=== PATIENT | male | born 1985 | race Caucasian/White ===

== ENCOUNTER 2024-10-07 12:37 | Outpatient (AMB) | payer MEDICAID, SELFPAY ==
--- NOTE | 2024-10-07 12:48 | MHC.OFFVIS ---
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 Patient says he has study atrium male from [facility] war [place] recently moved to [facility]. He has been having left-sided chest discomfort which she describes as burning chest discomfort. History was obtained with help of his friend who is present and helps with interpretation. Patient says this symptoms last for about 5-10 minutes and dissipate on its own. Mostly happen at rest. He is also noted to have slow heart rate he notices along with this symptoms and has to take a deep breath relieved with symptoms. Symptoms have now associated with being hungry or after a meal. Symptoms are not associated with exertion but can happen with exertion. He is worried about his heart issues due to his dad's history of stenting 5 years ago. He has no other risk factors. Denies smoking. Denies any significant alcohol use. No prolonged palpitation irregular heartbeat. No lightheadedness, syncope. No orthopnea, PND, leg edema. [facility] Family History Father CAD (coronary artery disease) Mother No problems noted. Social History Patient Tobacco Use Status: Never used Tobacco Review of Systems Const Denies chills, Denies daytime sleepiness, Denies fatigue, Denies fever(s), Denies frequent falls, Denies poor appetite, Denies snoring, Denies stops breathing during sleep, Denies weakness, Denies weight gain and Denies weight loss Eyes Denies loss of vision ENT Denies dizziness and Denies hearing loss Card Reports chest pain, Denies claudication, Denies leg edema, Denies lightheadedness, Denies palpitations, Denies dyspnea, Denies dyspnea on exertion and Denies orthopnea Resp Denies cough, Denies excessive phlegm production, Denies dyspnea, Denies dyspnea on exertion, Denies snoring and Denies wheezing GI Denies abdominal pain, Denies hematochezia, Denies change in bowel habits, Denies nausea and Denies vomiting Denies dysuria and Denies urinary frequency Musc Denies arthralgias, Denies muscle weakness, Denies numbness and Denies other (frequent falls) Skin/Breast Denies nail changes and Denies rash Neuro Denies Abnormal speech present, Denies dizziness, Denies frequent falls, Denies loss of vision, Denies memory loss, Denies numbness and Denies weakness Psych Denies depression and Denies memory loss Endo Denies fatigue and Denies palpitations Saul/Lymph Reports easy bruising and Reports other (anemia) Aller/Immun Denies wheezing Physical Exam Vital Signs: Last Vital Signs Pulse 71 10/07/24 12:49 BP 120/80 10/07/24 12:49 BMI result Body Mass Index 23.1 Const General: cooperative, comfortable, no acute distress, well developed, alert, awake and Physically active Nutritional Appearance: average body habitus and well nourished Orientation/consciousness: patient oriented x3 Limitations: no limitations HEENT Head: Yes normocephalic and Yes atraumatic Neck Neck: Yes trachea midline, Yes supple and Yes no JVD Resp Effort & Inspection: normal respiratory effort Auscultation: clear to auscultation bilaterally Cardio Jugular venous distension: no JVD Palpation: normal PMI Rate: regular rate Rhythm: regular rhythm Heart sounds: S1 normal heart sound present, S2 normal heart sound present, no click, no gallops and no murmurs GI Auscultation: normal bowel sounds Skin General skin exam: no rashes or lesions noted Neuro General: patient oriented x3 and no focal motor deficits Speech: No Abnormal speech present Extrem General: Yes no clubbing, cyanosis or edema Psych Appearance: grossly normal Assessment & Plan Assessment & Plan (1) Atypical chest pain: Code(s): R07.89 - Other chest pain Category: Medical Plan: Atypical chest pain this young man with family history of coronary artery disease without any clear exertional chest pain which is suggestive of high risk for coronary artery disease. However given his symptoms and risk factors suggest him to undergo a treadmill stress test given his baseline benign EKG. Also suggest echocardiogram to rule out any other structural heart issues including hypertrophic cardiomyopathy. Also just Holter monitor given that his symptoms of slow heart rate to rule out any significant Duran or tachyarrhythmias. This was discussed with him. He understands agrees. Advised to avoid sudden strenuous significant exertion. Follow up in the clinic after above-mentioned test. Thank you for allowing me to partake in his care Coding Level of Care Code New Pt Level 4 (34105) Complex EM visit Add On G2211 Diagnoses Atypical chest pain R07.89
[2024-10-07 12:49] VITALS: BP 120/80; PULSE 71; BMI 23.1
--- OUTSIDE RECORDS SUMMARY | 2024-10-07 14:54 | XMS_ITS | Clinical Summary ---
Author Organization [employer] [facility] Address [address] [place] [address] Care Team Providers Care Drum Maker Name Role Phone Judah Abdul MD Primary Care Prov ider Allergies No known active allergies Active Problems Problem Noted Date Diagnosed Date Asymptomatic microscopic hematuria 07/28/2023 Overview (04/03/2024): 07/28/23: Likely in setting of passing kidney stone, repeat in 1 month Nephrolithiasis 07/27/2023 Overview (04/03/2024): 11/2023: [facility] observing and following 08/14/23: Renal US nonobstructive 0.6cm stone in the L kidney 01/23/23: [facility] ER, passed stone, reports hx of at least 5 episodes of nephrolithiasis PTSD (post-traumatic stress disorder) 07/27/2023 Overview (04/03/2024): Developed during [place] war Encounters Date Type Department Care Team Description 09/13/2024 Population Health Risk Score [facility] Care [facility] (C3) Department [address] [place] [address] Provider, Population Health Generic from Last 3 Months Immunizations Name Administration Dates Next Due Influenza Injectable Quadriv alant Preservative Free IIV4 MDCK 02/19/2023 Influenza, seasonal, injectable, preservative fr ee 04/03/2024 Pfizer Covid-19 Vaccine 12+ 04/03/2024 Family History Medical History Relation Name Comments Heart disease Father Nephrolithiasis Mother Relation Name Status Comments Father Mother Social History Tobacco Use Types Packs/Day Years Used Date Smoking Tobacco: Never Smokeless Tobacco: Never Tobacco Cessation:Counseling Given: No Housing Stability Answer Date Recorded What is your housing situation today? I have joslyn bloom 02/20/[address] you li ve. Do you have problems with any of the following? None of the above 02/20/2024 Food Insecurity Answer Date Recorded Within the past 12 months, y ou worried that your food would run out before you got money to buy more: Never True 02/20/2024 Within the past 12 months,th e food you bought just didn't last and you didn't have enough money to get more: Never True Transportation Answer Date Recorded In the past 12 months, has l ack of transportation kept you from medical appts, meetings, work or from getting things needed for daily living? No 02/20/2024 Utilities Answer Date Recorded In the past 12 months, has t he electric, gas, oil or water company threatened to shut off services in your home? No 02/20/2024 Internet Access Answer Date Recorded Internet Access Q1 Yes 03/04/2024 Internet Access Q2 Not on file 03/04/2024 Sex and Gender Information Value Date Recorded Sex Assigned at Male 02/20/2024 9:57 AM EDT Legal Sex Male 9:57 AM EDT Gender Identity Male 02/20/2024 9:57 AM EDT Sexual Orientation Straight 02/20/2024 9: 57 AM EDT Last Filed Vital Signs Vital Sign Reading Time Taken Comments Blood Pressure 114/72 04/03/2024 9:23 AM EDT Pulse 61 04/03/2024 9:23 AM EDT Temperature 36.7 ??C (98.1 ??F) 04/03/2024 9:23 AM ED T Respiratory Rate 20 04/03/2024 9:23 AM EDT Oxygen Saturation 98% 04/03/2024 9:23 AM EDT Inhaled Oxygen Concentration - - Weight 66.7 kg (147 lb) 04/03/2024 9:23 AM EDT Height 174 cm (5' 8.5 ) 04/03/2024 9:23 AM EDT Body Mass Index 22.02 04/03/2024 9:23 AM EDT Plan of Treatment Health Maintenance Due Date Last Done Comments Depression Screening 1986 Lipid Panel 1986 Alcohol/Substance Use Screening 1998 Family Planning (PISQ) 2001 Hepatitis C Screening 2004 DTaP/Tdap/Td Vaccines (1 - Tdap) 2005 Hepatitis B Vaccines (1 of 3 - 19+ 3-dose series) 2005 SDOH Screening 02/19/2025 02/20/2024 Tobacco Screening 04/03/2025 04/03/2024 Zoster Vaccines (1 of 2) 2036 RSV Patients and Patients Aged 60 years or older (1 - 1-dose 75+ series) 2061 HIV Screening Completed 07/27/2023 COVID-19 Vaccine Completed 04/03/2024, 02/19/2023 Influenza Vaccine Completed 04/03/2024, 02/19/2023 HIB Vaccines Aged Out No longer eligi ble based on patient's age to complete this topic HPV Vaccines Aged Out No longer eligi ble based on patient's age to complete this topic Hepatitis A Vaccines Aged Out No long er eligible based on patient's age to complete this topic IPV Vaccines Aged Out No longer eligi ble based on patient's age to complete this topic Meningococcal Vaccine Aged Out No ulises amee eligible based on patient's age to complete this topic Pneumococcal Vaccine: Pediatrics (0 to 5 Years) and At-Risk Patients (6 to 49) Years) Aged Out No longer eligible b ased on patient's age to complete this topic RSV under 20 months Aged Out No longe r eligible based on patient's age to complete this topic Rotavirus Vaccines Aged Out No longer eligible based on patient's age to complete this topic Insurance C3 Care Teams Drum Maker Relationship Specialty Start Date End Date Judah Abdul MD [address] [place] [id number] PCP - General Internal Medicine 07/01/24
--- OUTSIDE RECORDS SUMMARY | 2024-10-07 14:54 | XMS_ITS | Clinical Summary ---
Author Organization [facility] Address [address] [place] [address] Care Team Providers Care User Acceptance Tester Name Role Phone Jasmyn Saeed MD Primary Care Provider [phone] Source Comments PLEASE NOTE, if this patient is a minor, it may be UNLAWFUL to discuss sensitive information that is contained in these records (such as FAMILY PLANNING, MENTAL HEALTH or SUBSTANCE ABUSE) with the minor patient's parent or other person without the patient's specific authorization.[facility] Allergies No known active allergies Medications naproxen (NAPROSYN) 500 mg tabletIndication s:Nonintractable headache, unspecified chronicity pattern, unspecified headache type Take 1 Tablet by mouth 2 (two) times daily with a meal 90 Tablet 1 07/27/2023 Active Active Problems Problem Noted Date Diagnosed Date Asymptomatic microscopic hematuria 07/28/2023 Overview (07/28/2023): 07/28/23: Likely in setting of passing kidney stone, repeat in 1 month 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 Nephrolithiasis 07/27/2023 Overview (05/15/2024): 04/2024: [facility] observing and following 08/14/23: Renal US nonobstructive 0.6cm stone in the L kidney 01/23/23: [facility] ER, passed stone, reports hx of at least 5 episodes of nephrolithiasis PTSD (post-traumatic stress disorder) 07/27/2023 Overview (07/27/2023): Developed during [place] war Family History Medical History Relation Name Comments Alcohol/Drug Abuse Brother Heart attack Father Kidney Stones Mother Relation Name Status Comments Brother Father Alive Mother Alive Social History Tobacco Use Types Packs/Day Years Used Date Smoking Tobacco: Never Smokeless Tobacco: Never Tobacco Cessation:Counseling Given: Not Answered Alcohol Use Standard Drinks/Week Comments Yes 0 (1 standard drink = 0.6 oz pur e alcohol) occationaly Social Connections Answer Date Recorded Connectedness 0 03/17/2024 Financial Resource Strain Answer Date R ecorded Financial Resource Strain 0 2022 Stress Answer Date Recorded Stress 0 05/18/2023 Physical Activity Answer Date Recorded Physical Activity 0 05/18/2023 Food Insecurity Answer Date Recorded Food 0 03/28/2024 Transportation Needs Answer Date Record ed Transportation 0 05/18/2023 Housing Stability Answer Date Recorded Housing 0 05/18/2023 Safety and Environment Answer Date Myles rded Safety 0 05/18/2023 Utilities Answer Date Recorded Utilities 0 05/18/2023 Employment Answer Date Recorded Stress 0 03/17/2024 Sex and Gender Information Value Date Recorded Sex Assigned at Male 07/27/2023 8:22 AM PST Legal Sex Male 7:29 AM PDT Gender Identity Male 07/27/2023 8:22 AM PST Sexual Orientation Straight 07/27/2023 8: 22 AM PST Last Filed Vital Signs Vital Sign Reading Time Taken Comments Blood Pressure 100/70 07/27/2023 10:39 AM EST Pulse 72 07/27/2023 10:39 AM EST Temperature 36.7 ??C (98 ??F) 07/27/2023 10:39 AM EST Respiratory Rate 18 07/27/2023 10:39 AM EST Oxygen Saturation 98% 07/27/2023 10:39 AM EST Inhaled Oxygen Concentration - - Weight 66.7 kg (147 lb) 07/27/2023 10:39 AM EST Height 171.5 cm (5' 7.52 ) 07/27/2023 10:[address] Body Mass Index 22.67 07/27/2023 10:39 AM EST Plan of Treatment Health Maintenance Due Date Last Done Comments Anxiety Screening 1986 Tobacco Screening 1986 Imm-DTaP/Tdap/Td (1 - Tdap) 2005 Imm-Hepatitis B (1 of 3 - 19 + 3-dose series) 2005 Mgm-PTSWH-17 (2 - season) 2024 023 Imm-Influenza (#1) 2024 02/19/2023 Alcohol and Drug Screen 07/03/2024 07/27/2023 Depression Annual Screen 07/03/2024 07/27/2023 Annual Preventive Care Visit 07/27/2024 07/27/2023 Hypertension Screening (#1) 07/26/2026 Diabetes Screening 07/27/2026 07/27/2023, 07/27/2023 HIV Screening Completed 07/27/2023 Hepatitis C Screening Completed 07/27/2023 Procedures Procedure Name Priority Date/Time Associated Diagnosis Comments HIV 1/2 AG & AB W/RFLX (4TH GEN) Routine 07/27/2023 11:32 AM EST Routine general medical examination at a health care facility HEPATITIS C AB W/RFLX HCV RNA, QT, RT PCR Routine 07/27/2023 11:32 AM EST Routine general medical examination at a health care facility COMPREHENSIVE METABOLIC PANEL Routine 07/27/2023 11:32 AM EST Routine general medical examination at a health care facility from Last 3 Months or Most Recently Relevant to Health Maintenance Results * HEPATITIS C AB W/RFLX HCV RNA, QT, RT PCR (07/27/2023 11:32 AM EST) HEPATITIS C ANTIBODY NON-REACT KARYN NON-REACT KARYN [employer] [facility] Comment: HCV antibody was non-reactive. There is no laboratory evidence of HCV infection. In most cases, no further action is required. However, if recent HCV exposure is suspected, a test for HCV RNA (test code 18889) is suggested. For additional information please refer to http://education.[employer].TXCOM/faq/CST72z9 (This link is being provided for informational/ educational purposes only.) Blood Blood / Unknown 07/27/2023 1 1:32 AM EST 07/27/2023 11:33 AM EST Narrative [employer] [facility] - 07/31/2023 6:34 AM EST FASTING:UNKNOWN Jasmyn Saeed MD LAB - BLOOD DRAW Edited Result - Final Performing Organization Address [facility]/ZIP Co de Phone Number [employer] [address] [address], [employer] [address] [address] * HIV 1/2 AG & AB W/RFLX (4TH GEN) (07/27/2023 11:32 AM EST) HIV AG/AB, 4TH GEN NON-REAC TIVE NON-REAC TIVE [employer] [facility] Comment: HIV-1 antigen and HIV-1/HIV-2 antibodies were not detected. There is no laboratory evidence of HIV infection. PLEASE NOTE: This information has been disclosed to you from records whose confidentiality may be protected by state law. ??If your state requires such protection, then the state law prohibits you from making any further disclosure of the information without the specific written consent of the person to whom it pertains, or as otherwise permitted by law. A general authorization for the release of medical or other information is NOT sufficient for this purpose. ?? For additional information please refer to http://education.[employer]/faq/BCL266 (This link is being provided for informational/ educational purposes only.) The performance of this assay has not been clinically validated in patients less than 2 years old. Blood Blood / Unknown 07/27/2023 1 1:32 AM EST 07/27/2023 11:33 AM EST Narrative [employer] [facility] - 07/31/2023 6:34 AM EST FASTING:UNKNOWN Jasmyn Saeed MD LAB - BLOOD DRAW Final Result [employer] [facility] [address] [address], [employer] [address] [address] * (ABNORMAL) COMPREHENSIVE METABOLIC PANEL (07/27/2023 11:32 AM EST) GLUCOSE 85 65 - 99 mg/dL [employer] [facility] Comment: ?Fasting reference interval UREA NITROGEN (BUN) 18 7 - 25 mg/dL [employer] [facility] CREATININE (blood) 0.92 0.60 - 1.26 mg/dL [employer] [facility] EGFR 110 > OR = 60 mL/min/1. 73m2 [employer] [facility] BUN/CREATININE RATIO SEE NOTE: [employer] [facility] Comment: ?? Not Reported: BUN and Creatinine are within ?? reference range. ? SODIUM 141 135 - 146 mmol/L [employer] [facility] POTASSIUM 5.0 3.5 - 5.3 mmol/L [employer] [facility] CHLORIDE 105 98 - 110 mmol/L [employer] [facility] CARBON DIOXIDE 30 20 - 32 mmol/L [employer] [facility] CALCIUM 9.4 8.6 - 10.3 mg/dL [employer] [facility] PROTEIN, TOTAL 7.5 6.1 - 8.1 g/dL [employer] [facility] ALBUMIN 4.7 3.6 - 5.1 g/dL [employer] [facility] GLOBULIN 2.8 1.9 - 3.7 g/dL (calc) [employer] [facility] ALBUMIN/GLOBULI N RATIO 1.7 1.0 - 2.5 (calc) [employer] [facility] BILIRUBIN, TOTAL 1.4(H) 0.2 - 1.2 mg/dL [employer] [facility] ALKALINE PHOSPHATASE 81 36 - 130 U/L [employer] [facility] AST 19 10 - 40 U/L [employer] [facility] ALT 13 9 - 46 U/L [employer] [facility] Blood Blood / Unknown 07/27/2023 1 1:32 AM EST 07/27/2023 11:33 AM EST Narrative [employer] [facility] - 07/31/2023 6:34 AM EST FASTING:UNKNOWN Jasmyn Saeed MD LAB - BLOOD DRAW Edited Result - Final [employer] [facility] [address] [address], [employer] [facility] [address] [place] [address] from Last 3 Months or Most Recently Relevant to Health Maintenance Insurance [address] [employer] [facility] [employer] Care Teams User Acceptance Tester Relationship Specialty Start Date End Date Jasmyn Saeed MD [address] [place] [address] PCP - General Family Medicine, Physician 07/27/23
== END 2024-10-07 13:18 | disposition home or self-care (01) ==
LOC: HO.HCS 12:38
PROVIDERS: Visit Provider Internal Medicine Cardiovascular Disease
DX: R07.89 Other chest pain (principal)
CPT/HCPCS: 99204

== ENCOUNTER → 2024-10-07 12:37 | Outpatient (BNVA) | payer MEDICAID, SELFPAY | PROVIDERS: Visit Provider Internal Medicine Cardiovascular Disease | DX: R07.89 Other chest pain (principal) | CPT/HCPCS: 99202 ==

== ENCOUNTER → 2024-11-21 08:50 | Outpatient (REF) | payer MEDICAID, SELFPAY ==
--- NOTE | 2024-11-21 08:58 | CA_ITS ---
Acquisition Time: 2024-11-21 10:17:15 Total Exercise Time: 00:13:27 Test Indications: CP Medications: SEE H&P Protocol: DEMOND Max HR: 181 BPM 99% of Pred: 182 BPM Max BP: 122/60 mmHG Max Work Load: 16.1 METS Exercise stress test with exercise 13 mins 27 secs of Demond Protocol, achieiving 101% MPHR, with reports of mild SOB, no chest pain, without any arrythmias, with normotensive response to exercise. Without any EKG changes meeting criteria for ischemia. In recovery, breathing returned to baseline. Test reviewed with Dr. Paz. Referred By: Jimbo Eckert Electronically Signed By: Escobar Dominguez
--- NOTE | 2024-11-21 08:58 | CA_ITS ---
Transthoracic Echocardiogram Patient (Last, First, Middle): Peewee Caballero, Gender: Male Date of : 1985 Age: 39 Procedure Date: 11/21/2024 Procedure Type: Transthoracic Echocardiogram Location: OP Height: 172.72 cm Weight: 69.85 kg BSA: 1.83 m2 Heart Rate: bpm BP: 120 / 80 mmHg Makeup Artist: STEVEN Referring MD: Jimbo Eckert MD Cover Machine Operator: Jimbo Eckert MD Symptoms: R07.89 - Other chest pain Study Quality: Adequate ECG Rhythm: Sinus Conclusions: - Normal study Findings Left Ventricle Normal left ventricular size, thickness, and systolic function. The visually estimated ejection fraction is between 60-65%. Spectral Doppler is indicative of a normal filling pattern. Right Ventricle Normal right ventricular cavity size and systolic function. Atria Both atria are normal in size. There is no evidence of interatrial shunt. Aortic Valve Normal aortic valve structure and function. There is no aortic valve stenosis. There is no aortic valve regurgitation. Mitral Valve Normal mitral valve structure and function. There is trace mitral valve regurgitation. There is no mitral valve stenosis. Pulmonic Valve The pulmonic valve is likely normal. Tricuspid Valve Normal tricuspid valve structure. There is trace tricuspid valve regurgitation. The right ventricular systolic pressure is normal. The right ventricular systolic pressure is 10 mmHg. Normal right atrial pressure. There is no evidence of pulmonary hypertension. Great Vessels All visible segments of the aorta are normal in size. The pulmonary artery was not well visualized. Venous The inferior vena cava is mildly dilated and collapses greater than 50% with inspiration. Pericardium/Pleural There is no evidence of pericardial effusion. Prior Study Comparison No prior study available for comparison. Measurements 2D Linear Measurements IVSd: 0.76 0.6-0.9/0.6-1.0 cm LVIDd: 4.68 3.9-5.3/4.2-5.9 cm LVIDd Index: 2.56 2.4-3.2/2.2-3.1 cm/m2 LVIDs: 3.12 2.0-3.6 cm LVPWd: 0.65 0.7-1.1 cm LA Diam: 2.80 2.7-3.8/3.0-4.0 cm LAIDs Index: 1.53 1.5-2.3 cm/m2 LV Mass: 128.65 67-162/88-224 g LV Mass Index: 70.30 43-95/49-115 g/m2 LVOT Diam: 2.40 3.0+(-)1.3 cm 2D Systolic Function EF 4C: 58.10 >55% EF 2C: 56.90 >55% EF BiP: 60.40 >55% Mitral Valve MV Pk E: 0.60 MV PK A: 0.29 MV Decel Time: 225.00 E/A: 2.10 E'Lateral: 12.90 E'Medial: 9.68 E/E' Med: 6.20 E/E' Lat: 4.70 PHT: 66.00 MVA PHT: 3.33 Decel Pettis: 2.66 Aortic Valve AoV Pk Maxwell: 0.89 AoV Mn Maxwell: 0.67 AoV VTI: 0.19 AoV Pk Grad: 3.00 Aov Mn Grad: 2.00 PARUL Cont.VTI: 3.90 LVOT LVOT Pk Maxwell: 0.79 LVOT Mn Maxwell: 0.57 LVOT VTI: 0.16 LVOT Pk Grad: 2.00 LVOT Mn Grad: 1.00 LVOT Diam: 2.40 LVOT Area: 4.52 Diastolic Function MV Pk E: 0.60 MV Pk A: 0.29 E/A: 2.10 E'Medial: 9.68 E/E' Med: 6.20 E' Laterial: 12.90 E/E' Lat: 4.70 Right Ventricle TAPSE (mm): 21.50 TVS' Maxwell: 10.80 Tricuspid Valve TR Pk Maxwell: 1.29 TR Pk Grad: 7.00 RA Press: 3.00 RVSP: 10.00 Great Vessels Aorta Sinus of Valsalva: 3.26 2.0-3.[address] Ridge: 2.44 1.7-3.4 cm Ao Asc: 2.90 2.1-3.4 cm Ao Arch: 2.20 Updated in Other Vendor System with Status of Final Jimbo Eckert MD electronically signed on 11/21/2024 5:35:13 PM with status of Final
--- OUTSIDE RECORDS SUMMARY | 2024-11-21 09:02 | XMS_ITS | Clinical Summary ---
Author Organization [facility] Address [address] [place] [address] Care Team Providers Care Plastic Jig And Fixture Builder Name Role Phone Judah Abdul MD Primary Care Prov ider Allergies No known active allergies Active Problems Problem Noted Date Diagnosed Date Asymptomatic microscopic hematuria 07/28/2023 Overview (04/03/2024): 07/28/23: Likely in setting of passing kidney stone, repeat in 1 month Nephrolithiasis 07/27/2023 Overview (04/03/2024): 11/2023: [facility] observing and following 08/14/23: Renal US nonobstructive 0.6cm stone in the L kidney 01/23/23: [facility] ER, passed stone, reports hx of at least 5 episodes of nephrolithiasis PTSD (post-traumatic stress disorder) 07/27/2023 Overview (04/03/2024): Developed during [place] war Encounters Date Type Department Care Team Description 09/13/2024 Population Health Risk Score [facility] ([facility]) Department [address] [facility] [address] [place] [address] Provider, Population Health Generic from Last 3 Months Immunizations Immunization Administration Dates Next Due Influenza Injectable Quadriv [...] Comments Depression Screening 1986 Lipid Panel 1986 Disability Screening 1986 Alcohol/Substance Use Screening 1998 Family Planning [...] patient's age to complete this topic Meningococcal B Vaccine Aged Out No l onger eligible based on patient's age to complete [...] complete this topic Insurance C3 Care Teams Plastic Jig And Fixture Builder Relationship Specialty Start Date End Date PavonJudah Tavera MD [address] [place] [address] [phone] PCP - General Internal Medicine 07/01/24
--- OUTSIDE RECORDS SUMMARY | 2024-11-21 09:02 | XMS_ITS | Clinical Summary ---
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 Name Role Phone Jasmyn Saeed MD Primary Care Provider [phone] Source Comments PLEASE NOTE, if this patient [...] 0.6cm stone in the L kidney 01/23/23: [facility] ER, passed stone, reports hx of [...] 3 - 19 + 3-dose series) 2005 [id number] (2 - season) 2024 023 Imm-Influenza (#1) 2024 02/19/2023 Alcohol and Drug Screen 07/03/2024 07/27/2023 Depression Annual Screen 07/03/2024 07/27/2023 Annual Wellness (Adult): Ind icated (All Coverage) 07/27/2024 07/27/2023 Hypertension Screening (#1) 07/26/2026 Diabetes [...] HEPATITIS C ANTIBODY NON-REACT KARYN NON-REACT KARYN [facility] Comment: HCV antibody was non-reactive. There is no laboratory evidence of HCV infection. In most cases, no further action is required. However, if recent HCV exposure is suspected, a test for HCV RNA (test code 01578) is suggested. For additional information please refer to http://education.[employer]/faq/ELH60m6 (This link is being provided for informational/ educational purposes only.) Blood Blood / Unknown 07/27/2023 1 1:32 AM EST 07/27/2023 11:33 AM EST Narrative [facility] - 07/31/2023 6:34 AM EST FASTING:UNKNOWN Jasmyn Saeed MD LAB - BLOOD DRAW Edited Result - Final Performing Organization Address [facility]/ZIP Co de Phone Number [facility] [address] [address], [facility] [address] [phone] * HIV 1/2 AG & AB W/RFLX (4TH GEN) (07/27/2023 11:32 AM EST) HIV AG/AB, 4TH GEN NON-REAC TIVE NON-REAC TIVE [facility] Comment: HIV-1 antigen and HIV-1/HIV-2 [...] ?? For additional information please refer to http://education.[employer]/faq/YCY285 (This link is being provided for informational/ educational purposes only.) The performance of this assay has not been clinically validated in patients less than 2 years old. Blood Blood / Unknown 07/27/2023 1 1:32 AM EST 07/27/2023 11:33 AM EST Narrative [facility] - 07/31/2023 6:34 AM EST FASTING:UNKNOWN Jasmyn Saeed MD LAB - BLOOD DRAW Final Result [facility] [address] [address], [facility] [address] [address] * (ABNORMAL) COMPREHENSIVE METABOLIC PANEL (07/27/2023 11:32 AM EST) GLUCOSE 85 65 - 99 mg/dL [facility] Comment: ?Fasting reference interval UREA NITROGEN (BUN) 18 7 - 25 mg/dL [facility] CREATININE (blood) 0.92 0.60 - 1.26 mg/dL [facility] EGFR 110 > OR = 60 mL/min/1. 73m2 [facility] BUN/CREATININE RATIO SEE NOTE: [facility] Comment: ?? Not Reported: BUN and Creatinine are within ?? reference range. ? SODIUM 141 135 - 146 mmol/L [facility] POTASSIUM 5.0 3.5 - 5.3 mmol/L [facility] CHLORIDE 105 98 - 110 mmol/L [facility] CARBON DIOXIDE 30 20 - 32 mmol/L [facility] CALCIUM 9.4 8.6 - 10.3 mg/dL [facility] PROTEIN, TOTAL 7.5 6.1 - 8.1 g/dL [facility] ALBUMIN 4.7 3.6 - 5.1 g/dL [facility] GLOBULIN 2.8 1.9 - 3.7 g/dL (calc) [facility] ALBUMIN/GLOBULI N RATIO 1.7 1.0 - 2.5 (calc) [facility] BILIRUBIN, TOTAL 1.4(H) 0.2 - 1.2 mg/dL [facility] ALKALINE PHOSPHATASE 81 36 - 130 U/L [facility] AST 19 10 - 40 U/L [facility] ALT 13 9 - 46 U/L [facility] Blood Blood / Unknown 07/27/2023 1 1:32 AM EST 07/27/2023 11:33 AM EST Narrative [facility] - 07/31/2023 6:34 AM EST FASTING:UNKNOWN us Jasmyn Saeed MD LAB - BLOOD DRAW Edited Result - Final [facility] [address] [address], [facility] [address] [place] [address] from Last 3 Months or Most Recently Relevant to Health Maintenance Insurance [address] [employer] [facility] [employer] Care Teams Sawmill Manager Relationship Specialty Start Date End Date Jasmyn Saeed MD [address] [place] [address] PCP - General Family Medicine, Physician 07/27/23
== END ==
LOC: HO.CARD 08:50
PROVIDERS: Visit Provider Internal Medicine Cardiovascular Disease
DX: R07.89 Other chest pain (principal); R00.1 Bradycardia, unspecified
CPT/HCPCS: 93017; 93225; 93306